=== PATIENT | female | born 1960 | race Caucasian/White ===

== ENCOUNTER 2017-10-10 15:53 | Emergency (ER) | payer MEDICARE ==
[~2017-10-10] VITALS: Ht 162.6 cm; Wt 109.1 kg
[~2017-10-10 15:53] MED LIST: ALLFEN400 MG PO; AMITRIPTYLINE H50 M1 PO; BENADRYL25 M2 PO; COLACE 100100 MG/CAP PO; FLEXERIL 1010 MG/TAB PO; KLONOPIN 1MG1 MG PO; KLONOPIN2 MG PO; LAMISIL250 MG PO; LOPRESSOR100 MG PO; LORTAB 10/500 51 TAB PO; NORCO 325 MG-101 TAB PO; PAXIL40 MG PO; SUDAFED30 MG PO; TEARS NATURALE15 M1 OP; TOPROL XL 50MG50 MG PO; VITAMIN ABC PLU PO; VITAMIN B100 CO1 TAB PO; VITAMIN C500 MG PO; VITAMIN D31000 IU PO; VOLTAREN 75 DR75 MG PO; WELLBUTRIN SR100 M1 PO
[2017-10-10 16:03] VITALS: TEMP 98.2
[2017-10-10 16:20] LABS: BASO # 0.1 (0.0-0.2); BASO % 1.1 % (0.0-2.0); EOS # 0.1 (0.0-0.7); EOS % 1.3 % (0-4.0); GRAN # 3.5 (1.4-6.5); GRAN % 63.7 % (42.2-75.2); HEMATOCRIT 46.5 % (37.0-47.0); HEMOGLOBIN 14.7 g/dl (12.5-16.0); LYMPH # 1.4 (1.2-3.4); LYMPH % 26.5 % (20.0-51.0); MEAN CELL VOLUME 83 fl (80.0-100.0); MEAN CORPUSCULAR HEMOGLOBIN 26 pg (27.0-31.0); MEAN CORPUSCULAR HGB CONC 32 g/dl (33.0-37.0); MEAN PLATELET VOLUME 10.2 fl (7.4-10.4); MONO # 0.4 (0.1-0.6); MONO % 7.2 % (1.7-9.3); PLATELET COUNT 257 K/mm3 (130-400); RED BLOOD COUNT 5.59 M/mm3 (4.10-5.30); REDCELL DISTRIBUTION WIDTH-CV 13.3 % (11.5-14.5)
[2017-10-10 16:36] LABS: ALANINE AMINOTRANSFERASE 79 U/L (9-52); ALBUMIN 4.2 gm/dL (3.5-5.0); ALKALINE PHOSPHATASE 109 U/L (50-136); ANION GAP 9 mmol/L (7-16); AST,SGOT 41 U/L (15-37); BILIRUBIN,TOTAL 0.6 mg/dL (0.0-1.0); BLOOD UREA NITROGEN 18 mg/dL (7-17); CALCIUM 9.2 mg/dL (8.4-10.2); CARBON DIOXIDE 29 mmol/L (22-30); CHLORIDE 103 mmol/L (98-107); CREATININE, serum 0.69 mg/dL (0.52-1.25); GLUCOSE 124 mg/dL (74-106); POTASSIUM 4.5 mmol/L (3.4-5.0); SODIUM 141 mmol/L (137-145); TOTAL PROTEIN 7.6 gm/dL (6.4-8.2)
[2017-10-10 16:38] LABS: ACETAMINOPHEN < 10 ug/mL (10-30); ALCOHOL(ethanol),MEDICAL < 10 mg/dL; SALICYLATE < 1.0 mg/dL
[2017-10-10] MEDS ORDERED: HCTZ12.5TAB PO (16:46)
[2017-10-10] MEDS ORDERED: BENADRYL25 M2 PO (16:46)
[2017-10-10] MEDS ORDERED: ATIVAN 0.50.5 MG/TAB PO (16:47)
[2017-10-10] MEDS ORDERED: ALLFEN400 MG PO (16:50)
[2017-10-10] MEDS ORDERED: BACTROBAN15 GM TOP (16:51)
[2017-10-10 17:09] LABS: COLLECTION METHOD CLEAN CATCH
[2017-10-10 17:16] LABS: MUCOUS Present /lpf; PH 5 (5-8); SQUAMOUS EPITHELIAL 20-50 /hpf; URINE APPEARANCE Cloudy; URINE BACTERIA Rare /hpf; URINE BILIRUBIN Negative (NEGATIVE); URINE BLOOD Negative (NEGATIVE); URINE COLOR Amber; URINE GLUCOSE Negative (NEGATIVE); URINE KETONE Negative (NEGATIVE); URINE LEUKOCYTE ESTERASE Trace (NEGATIVE); URINE NITRATE Negative (NEGATIVE); URINE PROTEIN(semi-quant) 1+ (NEGATIVE)
[2017-10-10 17:22] LABS: TRICYCLIC ANTIDEPRESS URINE POSITIVE
[2017-10-10 19:10] VITALS: BP 165/84; PULSE 85
== END 2017-10-10 19:10 | disposition home or self-care (01) ==
LOC: COL.ER 15:53
PROVIDERS: Emergency Medicine
DX: F32.9 Major depressive disorder, single episode, unspecified (principal); F41.9 Anxiety disorder, unspecified; Z90.710 Acquired absence of both cervix and uterus

== ENCOUNTER → 2019-08-05 | Outpatient (CLI) | payer MEDICARE ==
[~2019-08-05] MED LIST changes: +ATIVAN 0.50.5 MG/TAB PO; +BACTROBAN15 GM TOP; +HCTZ12.5TAB PO
== END ==
LOC: COL.VAS 13:47
DX: I08.1 Rheumatic disorders of both mitral and tricuspid valves (principal); I51.7 Cardiomegaly

== ENCOUNTER → 2021-01-22 | Outpatient (CLI) | payer MEDICARE | LOC: ZCOL.LAB 15:32 | DX: L98.499 Non-pressure chronic ulcer of skin of other sites with unspecified severity (principal) ==

== ENCOUNTER → 2021-08-05 | Outpatient (CLI) | payer MEDICARE | LOC: ZCOL.LAB 17:06 | DX: L97.519 Non-pressure chronic ulcer of other part of right foot with unspecified severity (principal) ==